=== PATIENT | female | born 1945 | race Caucasian/White ===

== ENCOUNTER 2020-04-25 17:55 | Emergency (ER) | payer MEDICARE, BC, SELFPAY ==
--- NOTE | ~2020-04-25 | CT_ITS ---
EXAMINATION: CT abdomen pelvis w con DATE: 04/25/2020 19:42 INDICATION: Right lower quadrant abdominal pain. TECHNIQUE: Computed tomography (CT) of the abdomen and pelvis was performed with 100 mL Omnipaque 350 intravenous contrast. Automated exposure control and iterative reconstruction technique were employe d. The dose-length product was 240.87 mGy-cm. COMPARISON: None. FINDINGS: The visualized portions of the lung bases demonstrate mild atelectasis. No pleural effusion . The heart size is normal. No pericardial effusion. There is a small sliding hiatal hernia. The live r, gallbladder, spleen, pancreas, and adrenal glands are normal. There are cysts in the kidneys measu ring up to 5 mm on the right. There are scattered diverticula in the colon. There is focal wall thick ening in the sigmoid colon with fat stranding, consistent with diverticulitis. The appendix is not vi sualized. There are no pathologically enlarged lymph nodes. There is no free intraperitoneal fluid. T he periuterine veins and ovarian veins are prominent, consistent with pelvic venous insufficiency. Th ere is a benign bone island in right ilium. There is mild lumbar spondylosis. IMPRESSION: 1. Sigmoid diverticulitis. 2. Small sliding hiatal hernia. 3. Pelvic venous insufficiency. Reviewed, dictated and finalized at location A. [facility]
[2020-04-25 18:04] VITALS: BP 129/63; PULSE 74; RESP 16; TEMP 37.4; O2SAT 97
--- NOTE | 2020-04-25 18:46 | ED.ABDPAIN ---
HPI - Abdominal Pain General Chief Complaint: Abdominal Pain <Jennifer Way PA-C - Last Filed: 04/25/20 20:42> Stated Complaint: abd pain <Jennifer Way PA-C - Last Filed: 04/25/20 20:42> Time Seen by Provider: 04/25/20 18:27 <Jennifer Way PA-C - Last Filed: 04/25/20 20:42> Source: patient <ISIDRO Orellana Last Filed: 04/25/20 20:42> Mode of arrival: ambulatory <ISIDRO Orellana Last Filed: 04/25/20 20:42> Limitations: no limitations <Jennifer Way PA-C - Last Filed: 04/25/20 20:42> History of Present Illness HPI narrative: This is a 74 year old female that presents to the ER for RLQ abdominal pain intermittent over the last week. Reports the pain is sharp in nature. Reports she was also recently diagnosed with coronavirus. Reports fever and congestion. She was evaluated in urgent care, and sent here for further work-up. Denies nausea, vomiting, dysuria, or hematuria. <ISIDRO Orellana Last Filed: 04/25/20 20:42> Related Data Allergies/Adverse Reactions: Allergies Allergy/AdvReac Type Severity Reaction Status Date / Time aspirin [From Percodan] Allergy Unknown Verified 04/25/20 20:15 oxycodone [From Percodan] Allergy Unknown Verified 04/25/20 20:15 <ISIDRO Orellana Last Filed: 04/25/20 20:42> Review of Systems Review of Systems: Narrative: CONSTITUTIONAL: Reports fever CARDIOVASCULAR: Denies chest pain RESPIRATORY: Denies cough or dyspnea. GASTROINTESTINAL: Reports abdominal pain. Denies nausea, vomiting, or diarrhea. GENITOURINARY: Denies dysuria or hematuria. <ISIDRO Orellana Last Filed: 04/25/20 20:42> All systems reviewed & are unremarkable except as noted in HPI and below <ISIDRO Orellana Last Filed: 04/25/20 20:42> [facility] Surgical History Surgical History: Surgical History (Updated 02/25/21 @ 18:[address] PA-C) History of tonsillectomy <Jennifer Way PA-C - Last Filed: 04/25/20 20:42> Social History Social History: Social History (Updated 04/25/20 @ 18:[address] PA-C) Smoking status: Never smoker Gender identity (if verbalized by the patient): Female <Jennifer Way PA-C - Last Filed: 04/25/20 20:42> Exam Narrative: Exam Narrative: GENERAL: Well-appearing, well-nourished, and in no acute distress. HEAD: Normocephalic, atraumatic. EYES: EOMI. CHEST: Clear to auscultation. No respiratory distress. No wheezes rales or rhonchi HEART: Regular rate and rhythm. No murmur heard. Normal peripheral pulses. ABDOMEN: Soft, nondistended, normal active bowel sounds. Mild tenderness to palpation in the lower abdomen, without guarding. No CVA tenderness EXTREMITIES: Normal range of motion. No edema. SKIN: Warm, dry, no rash. NEURO: No focal deficits. Alert and oriented x3. PSYCH: Normal mood and affect <Jennifer Way PA-C - Last Filed: 04/25/20 20:42> Course Vital Signs Vital signs: Vital Signs Temperature 37.4 C 04/25/20 18:04 Pulse Rate 74 04/25/20 18:04 Respiratory Rate 16 04/25/20 18:04 Blood Pressure 129/63 04/25/20 18:04 Pulse Oximetry 97 04/25/20 18:04 Temperature 37.4 C 04/25/20 18:04 Pulse Rate 74 04/25/20 18:04 Respiratory Rate 16 04/25/20 18:04 Blood Pressure 129/63 04/25/20 18:04 Pulse Oximetry 97 04/25/20 18:04 <Jennifer Way PA-C - Last Filed: 04/25/20 20:42> Vital Signs Temperature 37.4 C 04/25/20 18:04 Pulse Rate 74 04/25/20 18:04 Respiratory Rate 16 04/25/20 18:04 Blood Pressure 129/63 04/25/20 18:04 Pulse Oximetry 97 04/25/20 18:04 Temperature 37.4 C 04/25/20 18:04 Pulse Rate 74 04/25/20 18:04 Respiratory Rate 16 04/25/20 18:04 Blood Pressure 129/63 04/25/20 18:04 Pulse Oximetry 97 04/25/20 18:04 <Nate Frank MD - Last Filed: 04/25/20 20:44> MDM - Abdominal Pain MDM Narrative Medical decision making narrative: Brittany
[2020-04-25 18:48] LABS: Basophils Percent Auto 0.1 % (0.2-1.2); Eosinophils Percent Auto 0.1 % (0-4.4); Immature Granulocyte Absolute 0.03 K/mm3 (0.00-0.031); Immature Granulocyte Percent A 0.4 % (0-0.5); Lymphocytes Absolute Auto 1.96 K/mm3 (0.9-3.2); Lymphocytes Percent Auto 23.4 % (18.3-44.2); Mean Corpuscular HGB Conc 33.3 g/dl (32-36); Mean Corpuscular Hemoglobin 30.2 pg (26-34); Mean Corpuscular Volume 90.7 fl (80-100); Mean Platelet Volume 10.4 fl (7.4-10.4); Monocytes Absolute Auto 0.7 K/mm3 (0.1-0.6); Monocytes Percent Auto 8.3 % (2.6-8.5); Neutrophils Absolute Auto 5.7 K/mm3 (1.3-6.7); Neutrophils Percent Auto 67.7 % (45.5-73.1); Platelet Count Result 209 k/mm3 (150-375); Red Blood Count 4.63 M/mm3 (4.2-5.4); Red Cell Distribution Width 13.8 % (11.5-14.5); White Blood Count 8.4 K/mm3 (4.5-10.0)
[2020-04-25 18:55] LABS: Add Urine Microscopic? NO; Appearance Urine Clear (Clear); Bilirubin Urine Negative (Negative); Blood Urine Negative (Negative); Color Urine Yellow (Yellow); Glucose Urine UA Negative (Negative); Ketones Urine Negative (Negative); Leukocyte Esterase Ur Negative LEU/UL (Negative); Nitrate Urine Negative (Negative); Protein Urine Negative (Negative); Specific Grav Ur 1.012 (1.001-1.035); Urobilinogen Urine Negative mg/dL (<2.0)
[2020-04-25 19:00] LABS: Lactic Acid Reflex 0.9 mmol/L (0.7-2.1)
[2020-04-25 19:12] LABS: Alanine Aminotransferase 30 U/L (4-35); Albumin Level 3.8 g/dL (3.5-5.1); Alkaline Phosphatase 47 U/L (38-126); Anion Gap 4 mmol/L (8-16); Aspartate Amino Transferase 31 U/L (14-36); Bilirubin,Total 0.6 mg/dL (0.2-1.3); Blood Urea Nitrogen 15 mg/dL (7-17); Calcium 8.3 mg/dL (8.4-10.2); Carbon Dioxide 32 mmol/L (22-30); Chloride 98 mmol/L (98-107); Estimated CRCL calculation 49 ml/min; Estimated Glomerular Filt Rate > 60; Glucose 88 mg/dL (65-105); Lipase 96 U/L (23-300); Potassium 3.2 mmol/L (3.4-5.0); Sodium 134 mmol/L (137-145)
[2020-04-25] MEDS: POTASSIUM CHLORIDE 20 MEQ PACKET (FOR LIQUID) 40 MEQ PO (20:54)
== END 2020-04-25 20:15 | disposition home or self-care (01) ==
PROVIDERS: Physician Assistant; Emergency Provider Emergency Medicine
DX: K57.32 Diverticulitis of large intestine without perforation or abscess without bleeding (principal); I87.2 Venous insufficiency (chronic) (peripheral); E87.6 Hypokalemia; K44.9 Diaphragmatic hernia without obstruction or gangrene
CPT/HCPCS: 36415; 74177; 80053; 81003; 83605; 83690; 85025; 99284; A9270; Q9967